=== PATIENT | male | born 1950 | race Caucasian/White ===

== ENCOUNTER 2020-03-29 07:06 | Day surgery (SDC) | payer MEDICARE, OTHER ==
--- NOTE | 2020-03-27 07:51 | HP ---
DATE OF SURGERY: 03/29/2020 ANTICIPATED PROCEDURE: EGD with biopsy. HISTORY OF PRESENT ILLNESS: The patient gained more than three pounds. Biopsy at 32 cm showed inflammation versus dysplasia, will repeat in six months and presents for such. PAST MEDICAL HISTORY: ALLERGIES: PER THE CHART. MEDICATIONS: Per the chart. PAST SURGICAL HISTORY: Previous EGD. SOCIAL HISTORY: Positive tobacco. Positive ETOH. FAMILY HISTORY: Negative. REVIEW OF SYSTEMS: CVS: Positive. PULMONARY: Positive. PHYSICAL EXAMINATION: VITAL SIGNS: Normal. CHEST: Clear. COR: Regular. NECK: No neck lymphadenopathy. ABDOMEN: Satisfactory. IMPRESSION/PLAN: Follow up atypical EGD.
[~2020-03-29 07:06] MED LIST: Lactated Ringers 1,000 ML IV SCH
[2020-03-29] MEDS ORDERED: Lactated Ringers 1,000 ML IV ONE (07:11)
[2020-03-29] MEDS ORDERED: Ketamine HCl 50 MG/ML ONE (08:46)
[2020-03-29] MEDS ORDERED: Xylocaine-Mpf 2% 5 Ml Vial ONE (08:46)
[2020-03-29] MEDS ORDERED: DIPRIVAN 200 MG/20 ML IV ONE (08:46)
[2020-03-29 10:36] VITALS: O2SAT 96
[2020-03-29 10:38] VITALS: BP 141/88; PULSE 86
--- NOTE | 2020-03-29 14:02 | OP ---
SURGERY DATE/TIME: 03/29/2020 0926 PREOPERATIVE DIAGNOSIS: Patient had quite dramatic effects from treatment. We will await the biopsy of this area. POSTOPERATIVE DIAGNOSIS: Patient had quite dramatic effects from treatment. We will await the biopsy of this area. PROCEDURE: EGD. SURGEON: Peter Thomas M.D. ANESTHESIA: Versed and Demerol. COMPLICATIONS: None. CONDITION: Stable. INDICATION: Palomo Gonzalez has completed treatment and presents for completion esophagoscopy. DESCRIPTION OF PROCEDURE: Taken to endoscopy. Left lateral decubitus position. MAC sedation provided. Scope introduced. Pharyngoesophageal junction normal. Scope was normal at 32 cm on the anterior wall. 8 x 2 mm excrescence of slightly atypical tissue was present. Two sales representative raw fibers biopsies were taken of this on the way out. From here at 32 down to 40, there was hiatal hernia but there is no residual tumor. The stomach was slightly shrunken. It was also slightly friable. Pylorus satisfactory. Duodenal bulb satisfactory. Second portion satisfactory. Scope withdrawn looped upon itself. No additional lesions other than the hiatal hernia and the scope withdrawn. The patient tolerated the procedure satisfactorily.
== END 2020-03-29 10:30 | disposition home or self-care (01) ==
LOC: SDC 07:06
PROVIDERS: ATTEND Surgery
DX: K20.9 Esophagitis, unspecified (principal); K44.9 Diaphragmatic hernia without obstruction or gangrene; Z85.01 Personal history of malignant neoplasm of esophagus; Z79.899 Other long term (current) drug therapy
CPT/HCPCS: 88305; 99100; J2704

== ENCOUNTER 2021-04-15 09:01 | Day surgery (SDC) | payer MEDICARE, OTHER ==
--- NOTE | 2021-04-15 07:41 | HP ---
HISTORY OF PRESENT ILLNESS: This is a 70 year-old gentleman who has a history of esophageal cancer and he presents for follow up with EGD. The patient has occasional abdominal cramping but this is minimal. He does also have reflux history and he is taking an antacid medication for this. The patient denies any weight loss. He has maintained approximately 100 pounds. He continues to have reflux and occasional nausea. PAST SURGICAL HISTORY: Esophagectomy. Previous Mary procedure. MEDICATIONS: Medications reviewed in the chart in medication reconciliation. ALLERGIES: PENICILLIN. SOCIAL HISTORY: No tobacco use. Occasional alcohol use. FAMILY HISTORY: Brother with lung cancer. PHYSICAL EXAMINATION: GENERAL: No acute distress. CVS: Regular rate and rhythm. PULMONARY: Nonlabored. ABDOMEN: Soft, nontender, nondistended. EXTREMITIES: Normal. DIAGNOSIS: Esophageal cancer history, current gastroesophageal reflux disease. PLAN: EGD. All risks, benefits and alternatives have been discussed with the patient and he would like to proceed. [place] [facility]
[~2021-04-15 09:01] MED LIST changes: +Lactated Ringers 1,000 ML IV ONE
[2021-04-15 10:32] LABS: ANION GAP 12.1 MEQ/L (5-15); BLOOD UREA NITROGEN 12 mg/dL (9-20); CHLORIDE 93 mmol/L (98-107); Calcium 9.1 mg/dL (8.4-10.2); Carbon Dioxide 31 mmol/L (22-30); Creatinine 1 0.86 mg/dL (0.66-1.25); EST GLOMERULAR FILTRATION RATE > 60.0 ML/MIN; Glucose 85 mg/dL (74-106); Potassium 5.9 mmol/L (3.5-5.1); SODIUM 130 mmol/L (137-145)
[2021-04-15] MEDS ORDERED: Sodium Chloride 0.9% 1000 ML 1,000 ML IV SCH (10:45)
[2021-04-15] MEDS ORDERED: Sodium Chloride 0.9% 1000 ML 1,000 ML IV STA (11:27)
[2021-04-15 12:22] LABS: ANION GAP 11.3 MEQ/L (5-15); BLOOD UREA NITROGEN 12 mg/dL (9-20); CHLORIDE 97 mmol/L (98-107); Carbon Dioxide 26 mmol/L (22-30); Creatinine 1 0.74 mg/dL (0.66-1.25); EST GLOMERULAR FILTRATION RATE > 60.0 ML/MIN; Glucose 71 mg/dL (74-106); Potassium 4.3 mmol/L (3.5-5.1); SODIUM 129 mmol/L (137-145)
[2021-04-15] MEDS ORDERED: DIPRIVAN 200 MG/20 ML IV ONE (12:37)
[2021-04-15] MEDS ORDERED: Zofran 4 MG/2 ML VIAL ONE (13:38)
[2021-04-15 14:24] VITALS: PULSE 74
[2021-04-15 14:32] VITALS: O2SAT 97
--- NOTE | 2021-04-15 14:37 | XRAY ---
Indication: Abnormal EGD. History esophageal cancer 2019 with esophagectomy. Esophagram performed in the AP, anterior oblique, and lateral plane. Esophagram initially performed using water-soluble Gastrografin. Tiny Gastrografin ingested without miss swallow or aspiration. Visualized esophagus normal in course and caliber with Gastrografin puddling in distal esophagus. No extravasation of Gastrografin to suggest perforation/leak. Tiny Gastrografin empties into the stomach. Esophagram then performed using thin barium again without miss or aspiration. Combination barium and Gastrografin predominantly puddles in the distal esophagus with minimal emptying into the stomach. Again no contrast extravasation/leak. Impression: Negative esophagram using both Gastrografin and thin barium. Approximately 2 minute fluoroscopy used.
[2021-04-15 15:30] VITALS: BP 137/86
--- NOTE | 2021-04-17 08:56 | OP ---
PROCEDURE DATE/TIME: 04/15/2021 1253 PREOPERATIVE DIAGNOSES: 1) History of esophageal cancer. 2) Nausea. 3) Positive gastroesophageal reflux disease. POSTOPERATIVE DIAGNOSES: 1) Gastritis. 2) Esophagitis. 3) Patent anastomosis. PROCEDURE: EGD with biopsy. PROCEDURE PERFORMED BY: Kerry Thomas M.D. ESTIMATED BLOOD LOSS: Minimal. ANESTHESIA: MAC. COMPLICATIONS: None. SPECIMENS: 1) Distal esophagus/gastroesophageal junction at 32 cm abnormal esophageal tissue, distal esophagus at approximately 30 cm and nodular esophagitis tissue at 25 cm. 2) Gastric antral biopsy and gastritis biopsies. HISTORY: This is a gentleman who has had a partial esophagectomy due to esophageal cancer. He is here with the complaint of reflux as well as for surveillance. Risks, benefits, alternatives, H&P confirmed with the patient and reviewed with him and confirmed. I also discussed his laboratory studies with his medical doctor and he has been deemed satisfactory for the procedure. He has no symptoms currently except for reflux. DESCRIPTION OF PROCEDURE: He was placed in the left lateral decubitus position. A complete time out was performed. The scope gently introduced into the mouth, oropharynx and down to the esophagus, stomach and duodenum. His duodenum was normal. He does have gastritis throughout his stomach and bleeds very easily. The stomach is raw. I do not however see any masses or concerns for cancer in his stomach. I took a biopsy from his antrum and the body of his stomach and sent these to pathology. These were insured to be hemostatic. As we withdrew the scope the patient's anastomosis is nice and patent. His distal esophagus had some irregularity consistent with reflux esophagitis at about 31.5 - 32 cm and I biopsied this here with cold forceps. He also had what appeared to be an ectopic gastric tissue patch above this at about 30 cm. This did look benign but we did biopsy this as well and then proximal to this he had grainy nodular esophageal tissue consistent with esophagitis, some reflux and I did biopsy this abnormal tissue at 25 cm. When I did this biopsy this is extremely fragile tissue. Everything looked hemostatic. Esophagus holding air well. No sign of obvious perforation. When we withdrew the scope no other findings. However because of his history, fragility, I did get an upper GI and this looked good after the procedure as well. He will be discharged home on a liquid diet and he will follow up with me as an outpatient for his biopsy results.
== END 2021-04-15 15:20 | disposition home or self-care (01) ==
LOC: SDC 09:01
PROVIDERS: ATTEND Surgery
DX: K29.70 Gastritis, unspecified, without bleeding (principal); K20.90 Esophagitis, unspecified without bleeding; Z85.01 Personal history of malignant neoplasm of esophagus; Z80.1 Family history of malignant neoplasm of trachea, bronchus and lung
CPT/HCPCS: 36415; 74220; 80048; 99100; J2405; J2704